=== PATIENT | female | born 1975 | race Caucasian/White ===

== ENCOUNTER 2023-09-29 06:08 | Day surgery (SDC) | payer OTHER ==
[2023-09-20 16:08] VITALS: BMI 40.2
[2023-09-29] MEDS ORDERED: BUPIVACAINE HCL/PF 2.5 MG/ML - 30 ML VIAL IJ ONE (07:11)
[2023-09-29] MEDS ORDERED: EPINEPHrine 1:1,000 1,000 MCG/ML ML ONE (07:11)
[2023-09-29] MEDS ORDERED: MIDAZOLAM HCL 2 MG/2 ML SINGLE DOSE VIAL ONE (07:12)
[2023-09-29] MEDS ORDERED: PROPOFOL 20 ML ONE (07:14)
[2023-09-29] MEDS ORDERED: oxyCODONE HCL 5 MG TABLET PO PRN ×2 (07:32)
[2023-09-29] MEDS ORDERED: ONDANSETRON 4 MG/2 ML VIAL IVPUSH PRN (07:32)
[2023-09-29] MEDS ORDERED: LACTATED RINGERS SOLUTION 1,000 ML IV SCH (07:45)
[2023-09-29] MEDS ORDERED: ceFAZolin SODIUM 1 GM VIAL ONE (08:20)
[2023-09-29] MEDS ORDERED: ONDANSETRON 4 MG/2 ML VIAL ONE ×2 (08:20→08:56)
[2023-09-29] MEDS ORDERED: PROMETHAZINE HCL 25 MG/1 ML VIAL ONE (08:49)
[2023-09-29] MEDS ORDERED: PROMETHAZINE HCL 25 MG/1 ML VIAL IVPB ONE (08:55)
[2023-09-29 11:28] VITALS: RESP 20; TEMP 97.1
[2023-09-29 11:30] VITALS: BP 178/90; PULSE 78
== END 2023-09-29 11:05 | disposition home or self-care (01) ==
LOC: FASU 06:08
PROVIDERS: ATTEND Orthopaedic Surgery
PROC: 0SBD4ZZ Excision of Left Knee Joint, Percutaneous Endoscopic Approach (ICD-10-PCS; 2023-09-29)
PROC: 0SBD4ZZ Excision of Left Knee Joint, Percutaneous Endoscopic Approach (ICD-10-PCS; 2023-09-29)
PROC: 0SBD4ZZ Excision of Left Knee Joint, Percutaneous Endoscopic Approach (ICD-10-PCS; principal; 2023-09-29 08:19)
DX: S83.242A Other tear of medial meniscus, current injury, left knee, initial encounter (principal); S83.282A Other tear of lateral meniscus, current injury, left knee, initial encounter; M65.862 Other synovitis and tenosynovitis, left lower leg; S83.8X2A Sprain of other specified parts of left knee, initial encounter; X58.XXXA Exposure to other specified factors, initial encounter; Y92.9 Unspecified place or not applicable; Y93.9 Activity, unspecified
CPT/HCPCS: 81025; 88305-TC; 94760